=== PATIENT | female | born 1950 | race Caucasian/White ===

== ENCOUNTER 2024-07-27 06:48 | Inpatient (IN) | payer OTHER, BC, MEDICARE, SELFPAY ==
[2024-07-10 14:21] VITALS: BMI 29.3
[2024-07-10 14:45] LABS: Hematocrit 37.2 % (37.0-47.0); Hemoglobin 12.2 g/dL (12.0-16.0); Mean Corp Hgb Conc. 32.8 g/dL (33.0-37.0); Mean Corpuscular Hgb 27.2 pg (27.0-31.0); Mean Corpuscular Volume 82.9 fL (81.0-99.0); Red Blood Cell Count 4.49 10^6/uL (4.20-5.40); Red Cell Dist. Width 12.7 % (11.5-14.5); White Blood Cell Count 6.8 10^3/uL (4.8-10.8)
[2024-07-10 14:57] LABS: ALT (SGPT) 25 U/L (0-35); AST (SGOT) 24 U/L (14-36); Albumin 4.5 g/dl (3.5-5.0); Alkaline Phosphatase 83 U/L (38-126); Blood Urea Nitrogen 31 mg/dl (7-17); Calcium 9.6 mg/dl (8.4-10.2); Carbon Dioxide 28 mmol/L (22-30); Chloride 101 mmol/L (98-107); Estimated Creatinine Clearance 46 ml/min; Glucose 89 mg/dl (70-99); Potassium 3.9 mmol/L (3.5-5.1); Sodium 143 mmol/L (135-145); Total Bilirubin 0.5 mg/dl (0.2-1.3); Total Protein 7.2 g/dl (6.3-8.2); eGFR 59.86
[2024-07-10 15:03] LABS: Mean Platelet Volume 10.8 fL (7.4-10.4); Platelet Count 62 10^3/uL (130-400)
--- NOTE | 2024-07-10 15:12 | PTCARENOTE ---
Patients 07/10 platelets Cayden Bond @ Dr. Galarza office notified
[2024-07-11 08:39] LABS: Glycohemoglobin (HgbA1c) 6.8 % (4.0-5.6)
[2024-07-23 09:24] VITALS: BMI 29.3
[2024-07-27] VITALS (13 sets, daily range): BP systolic 89–134; BP diastolic 52–76; PULSE 92–94; O2SAT 95
[2024-07-27 07:38] LABS: Glucose - Point of Care 161 mg/dl (70-99)
[2024-07-27] MEDS: NORMOSOL-R/PLASMALYTE-A 1000 IV ×2 (08:00→11:30)
[2024-07-27 10:38] LABS: Glucose - Point of Care 132 mg/dl (70-99)
[2024-07-27] MEDS: ROXICODONE 5 MG PO (11:09)
[2024-07-27] MEDS: NOVOLOG FLEXPEN-MODERATE RESISTANCE SC (11:30)
--- NOTE | 2024-07-27 11:30 | PTCARENOTE ---
Received patient from PACU. Patient AAOx3, a bit drowsy. Patient Stateless speaking, understands some Icelandic, able to follow commands and give lunch order. SHOP ESTIMATOR to call patient's daughter. Call arora in reach, right aquacel with very small drainage,
ice applied, foot pumps on.
--- NOTE | 2024-07-27 11:45 | W.PN.ORTHO ---
Today's Communication / Plan
-
D/c when clinically stable.
Assessment
.
Distal Motor Intact: Yes
Dressing:
Scant incisional bleeding on center of dressing.
Assessment:
R hip OA s/p Dionne MCMULLEN w/ Dr Galarza 07/27/24
DVT prophylaxis - Eliquis 2.5 mg PO BID w/ transition to 5 mg PO BID x4 weeks (as long as platelet count remains >50,000), b/l venous foot pumps
HTN - + parameters - monitor BP
Asthma - monitor O2
- IS
- Resume inhalers
NIDDM, A1c 6.8 - monitor BS
- Resume home meds
- + SSI
GERD - add daily Protonix
Chronic constipation - add MOM HS to bowel regimen of Colace and Senna
H/o reported urinary retention - add daily Flomax
- Bladder scan/straight cath prn
ITP - improving from 62,000 to 90,000 platelets w/ Decadron pre-op
- Recheck platelets in AM
- Eliquis as stated above
- Will need weekly CBCs while on OAC
- Would benefit from prophylactic Cefadroxil
Hypercholesterolemia
H/o H pylori 2023
Fatty liver disease
Ileus post-op after bladder prolapse repair
Cholelithiasis, asymptomatic
Nephrolithiasis
Lumbar DDD
Hypothyroidism
Osteopenia
Plan
.
Surgery / Date: Dionne MCMULLEN w/ Dr Galarza 07/27/24
DVT Prophylaxis: Other (Eliquis )
Activity:
Out of bed.
PT/OT
Discharge Plan: Home w/ Outpatient PT
Subjective
.
.:
Patient examined resting in bed.
R hip pain 'moderate' - just medicated w/ Oxycodone, however, in PACU.
Denies any new significant complaints.
Vital Signs and Labs
.
Vital Signs and Labs:
Lab Results
07/10/24 14:14
07/10/24 14:14
Temp Pulse Resp BP Pulse Ox
98.1 F 62 16 134/76 95
07/27/24 07:00 07/27/24 07:00 07/27/24 07:00 07/27/24 07:00 07/27/24 07:00
Physical Exam
-
HEENT: No pallor, cyanosis, or jaundice. Throat clear.
NECK: Supple. No JVD.
RESPIRATORY: Lungs clear to auscultation.
CVS: S1, S2 normal. RRR.�
ABDOMEN: Soft, non-tender. No distension. Obese.
EXTREMITIES: Strength equal, no calf pain with palpation/dorsiflexion. Calves soft.
SOCK EXAMINER: AOx3. No focal deficits. laydown machine operator grossly intact
[2024-07-27] MEDS: TRICOR 48 MG PO (13:24)
[2024-07-27] MEDS: AMARYL 1 MG PO (13:24)
[2024-07-27] MEDS: PROTONIX 40 MG PO (13:24)
[2024-07-27] MEDS: TYLENOL 650 MG PO ×3 (13:25→20:25)
[2024-07-27] MEDS: FLOMAX 0.4 MG PO (13:25)
[2024-07-27] MEDS: NEURONTIN 200 MG PO ×3 (13:26→20:26)
[2024-07-27] MEDS: LIDOCAINE 4% PATCH 2 PATCH TOPICAL (13:26)
[2024-07-27] MEDS: VITAMIN D3 (cholecalciferol) 100 MCG PO (13:26)
[2024-07-27 17:14] LABS: Glucose - Point of Care 379 mg/dl (70-99)
[2024-07-27] MEDS: ANCEF 5 IV (17:19)
[2024-07-27] MEDS: NOVOLOG FLEXPEN-MODERATE RESISTANCE 9 UNITS SC (17:20)
[2024-07-27] MEDS: SYMBICORT 80/4.5 MCG INHALER 2 PUFF INH (20:01)
[2024-07-27] MEDS: ELIQUIS 2.5 MG PO (20:24)
[2024-07-27] MEDS: COLACE 100 MG PO (20:24)
[2024-07-27] MEDS: SENOKOT 17.2 MG PO (20:24)
[2024-07-27] MEDS: BACTROBAN 2% OINTMENT 1 APPLIC NASAL (20:25)
[2024-07-27] MEDS: SINGULAIR 10 MG PO (20:26)
[2024-07-27 21:54] LABS: Glucose - Point of Care 274 mg/dl (70-99)
[2024-07-28] VITALS (7 sets, daily range): BP systolic 98–123; BP diastolic 25–73; PULSE 83–86; O2SAT 96–98
[2024-07-28] MEDS: ANCEF 5 IV (00:40)
[2024-07-28] MEDS: TYLENOL 650 MG PO ×4 (00:40→13:09)
[2024-07-28] MEDS: SYNTHROID 137 MCG PO (06:29)
[2024-07-28 06:48] LABS: Platelet Count 102 10^3/uL (130-400)
[2024-07-28] MEDS: SYMBICORT 80/4.5 MCG INHALER 2 PUFF INH (07:18)
[2024-07-28 08:07] LABS: Glucose - Point of Care 196 mg/dl (70-99)
[2024-07-28] MEDS: NOVOLOG FLEXPEN 3 UNITS SC ×2 (09:38→13:08)
[2024-07-28] MEDS: NOVOLOG FLEXPEN-MODERATE RESISTANCE 1 UNITS SC (09:38)
[2024-07-28] MEDS: PROTONIX 40 MG PO (09:41)
[2024-07-28] MEDS: BACTROBAN 2% OINTMENT 1 APPLIC NASAL (09:42)
[2024-07-28] MEDS: NEURONTIN 200 MG PO (09:42)
[2024-07-28] MEDS: LIPITOR 10 MG PO (09:42)
[2024-07-28] MEDS: ELIQUIS 2.5 MG PO (09:43)
[2024-07-28] MEDS: SENOKOT 17.2 MG PO (09:43)
[2024-07-28] MEDS: AMARYL 1 MG PO (09:43)
[2024-07-28] MEDS: COLACE 100 MG PO (09:44)
[2024-07-28] MEDS: FLOMAX 0.4 MG PO (09:44)
[2024-07-28] MEDS: VITAMIN D3 (cholecalciferol) 100 MCG PO (09:44)
[2024-07-28] MEDS: LIDOCAINE 4% PATCH 2 PATCH TOPICAL (09:45)
[2024-07-28] MEDS: TRICOR 48 MG PO (09:45)
--- NOTE | 2024-07-28 10:02 | W.PN.ORTHO ---
Today's Communication / Plan
-
Await PT and OT recs.
D/c later today if remaining clinically stable.
Assessment
.
Distal Motor Intact: Yes
Dressing:
Scant areas of old incisional bleeding.
Assessment:
R hip OA s/p R BENEDICT w/ Dr Galarza 07/27/24
DVT prophylaxis - Eliquis 2.5 mg PO BID w/ transition to 5 mg PO BID x4 weeks (as long as platelet count remains >50,000), b/l venous foot pumps
HTN - + parameters - BPs stable
Asthma - O2 stable on RA
- IS
- Resumed inhalers
NIDDM, A1c 6.8 - BS readings initially elevated 2* surgical stress/IV steroids in OR/holding of AM Glimepiride
- Expect BS readings to improve w/ standing order Novolog 3u AC and SSI during admission, resumption of Glimepiride
GERD - added daily Protonix
Chronic constipation - added MOM HS to bowel regimen of Colace and Senna
H/o reported urinary retention - urinating by POD 1 after Flomax
ITP - improving from 62,000 to 90,000 platelets w/ Decadron pre-op
- Platelets 102,000 POD 1
- Eliquis as stated above
- Will need weekly CBCs while on OAC
- Would benefit from prophylactic Cefadroxil
Hypercholesterolemia
H/o H pylori 2023
Fatty liver disease
Ileus post-op after bladder prolapse repair
Cholelithiasis, asymptomatic
Nephrolithiasis
Lumbar DDD
Hypothyroidism
Osteopenia
Plan
.
Surgery / Date: Dionne MCMULLEN w/ Dr Galarza 07/27/24
DVT Prophylaxis: Other (Eliquis )
Activity:
Out of bed.
PT/OT
Discharge Plan: Home w/ Outpatient PT (vs home w/ VN)
Subjective
.
.:
Patient resting comfortably in her chair.
R hip pain minimal w/ current pain meds.
Denies any new significant complaints.
Vital Signs and Labs
.
Vital Signs and Labs:
Lab Results
07/28/24 04:52
07/10/24 14:14
Temp Pulse Resp BP Pulse Ox
97.4 F 80 18 98/57 96
07/28/24 07:00 07/28/24 07:22 07/28/24 07:22 07/28/24 07:00 07/28/24 07:22
Non-invasive Hgb result: 11.9
Physical Exam
-
HEENT: No pallor, cyanosis, or jaundice. Throat clear.
NECK: Supple. No JVD.
RESPIRATORY: Lungs clear to auscultation.
CVS: S1, S2 normal. RRR.�
ABDOMEN: Soft, non-tender. No distension.
EXTREMITIES: Strength equal, no calf pain with palpation/dorsiflexion. Calves soft.
CUT OFF OPERATOR SCORER: AOx3. No focal deficits. med aide grossly intact
--- NOTE | 2024-07-28 11:58 | CM ---
Met with patient and daughter. Daughter supportive
IA Completed, case management consult complete, IMM explained & signed. In chart.
Lives in a 2 story row home in [facility], 0 steps to enter as she will be entering through the basement & staying there at this time, with bath in basement.
Outpatient set up with [facility] on [address] for .
Discussed Eliquis and coupons given to daughter.
PCP: Dr. Otoniel Thornton
Pharmacy: [facility],
PLAN: Outpatient therapy
Daughter to transport home.
[2024-07-28 12:08] LABS: Glucose - Point of Care 251 mg/dl (70-99)
--- NOTE | 2024-07-28 12:28 | W.DS.TRANS ---
DC Summary - Machine Etcher
-
Discharge Instructions:
Sleep Apnea Risk Intermediate
Discharge Diagnosis/Procedures R hip OA s/p R BENEDICT w/ Dr Galarza 07/27/24
Diet Diabetic, Carb Controlled
Activity As tolerated,With Walker
Driving Restrictions Not until seen by your Dr
Bathing Restrictions OK to Shower
Blood Work CBC w/o diff on Mondays weekly x4 weeks w/
results to surgeon's office and hematology. You
were given a script for this upon d/c.
Other Services PT
Wound Care Dressing to be removed 1 week post-op.
Instructions:
Stand-Alone Forms: Total Hip/Knee Replacement D/C
Changes to Home Medications: Yes
Discharge Medications:
DC Medications w/original date entered in [facility]
calcium carbonate 500 mg PO DAILY Supplement 02/21/22
fenofibrate nanocrystallized 48 mg tablet 48 mg PO DAILY High cholesterol 02/21/22
glimepiride 1 mg tablet 1 mg PO DAILY Diabetes 02/21/22
montelukast 10 mg tablet 10 mg PO HS Allergies 02/21/22
atorvastatin 10 mg tablet 10 mg PO DAILY High Cholesterol 07/21/24
budesonide-formoterol HFA 80 mcg-4.5 mcg/actuation aerosol inhaler (Symbicort) 2 puff inhalation BID Lung/Breathing Issues 07/21/24
carbinoxamine maleate 6 mg tablet (RyVent) 6 mg PO BID 07/21/24
cholecalciferol (vitamin D3) 50 mcg (2,000 unit) capsule (Vitamin D3) 100 mcg PO DAILY Supplement 07/21/24
levothyroxine 137 mcg tablet 137 mcg PO DAILY Thyroid 07/21/24
mupirocin 2 % topical ointment 1 applic topical BID 07/21/24
Saccharomyces boulardii 250 mg capsule (Florastor) 250 mg PO BID #14 caps 07/28/24
acetaminophen 650 mg tablet,extended release 650 mg PO Q4HWA #60 tabs 07/28/24
apixaban 5 mg tablet (Eliquis) 5 mg PO BID #60 tabs 07/28/24
cefadroxil 500 mg capsule 500 mg PO BID #14 caps 07/28/24
diltiazem HCl 360 mg capsule,extended release 24 hr 360 mg PO DAILY Blood pressure #1 cap 07/28/24
docusate sodium 100 mg capsule 100 mg PO BID #30 caps 07/28/24
gabapentin 100 mg capsule 200 mg (2 x 100 mg) PO TID@0800,1400,2200 neuropathic pain #30 caps 07/28/24
hydrochlorothiazide 25 mg tablet 25 mg PO DAILY Fluid Retention/Swelling #0 tabs 07/28/24
lidocaine 4 % topical patch 2 patch topical DAILY #30 ea 07/28/24
losartan 100 mg tablet 100 mg PO DAILY Blood pressure #1 tab 07/28/24
magnesium hydroxide 400 mg/5 mL oral suspension 30 ml PO HS #3,780 mL 07/28/24
ondansetron HCl 4 mg tablet 4 mg PO Q6H PRN nausea and vomiting #30 tabs 07/28/24
oxycodone 5 mg tablet 5 - 10 mg (1 - 2 x 5 mg) PO Q6H PRN moderate-severe pain #30 tabs 07/28/24
pantoprazole 40 mg tablet,delayed release 40 mg PO DAILY #30 tabs 07/28/24
sennosides 8.6 mg tablet (Senna Laxative) 17.2 mg (2 x 8.6 mg) PO BID #30 tabs 07/28/24
Home Medication Changes
Saccharomyces boulardii 250 mg capsule (Florastor) 250 mg PO BID #14 caps 07/28/24
acetaminophen 650 mg tablet,extended release 650 mg PO Q4HWA #60 tabs 07/28/24
apixaban 5 mg tablet (Eliquis) 5 mg PO BID #60 tabs 07/28/24 2.5 mg PO BID until POD 3, then 5 mg PO BID x4 weeks
cefadroxil 500 mg capsule 500 mg PO BID #14 caps 07/28/24
docusate sodium 100 mg capsule 100 mg PO BID #30 caps 07/28/24
gabapentin 100 mg capsule 200 mg (2 x 100 mg) PO TID@0800,1400,2200 neuropathic pain #30 caps 07/28/24
lidocaine 4 % topical patch 2 patch topical DAILY #30 ea 07/28/24
magnesium hydroxide 400 mg/5 mL oral suspension 30 ml PO HS #3,780 mL 07/28/24
ondansetron HCl 4 mg tablet 4 mg PO Q6H PRN nausea and vomiting #30 tabs 07/28/24
oxycodone 5 mg tablet 5 - 10 mg (1 - 2 x 5 mg) PO Q6H PRN moderate-severe pain #30 tabs 07/28/24
pantoprazole 40 mg tablet,delayed release 40 mg PO DAILY #30 tabs 07/28/24
sennosides 8.6 mg tablet (Senna Laxative) 17.2 mg (2 x 8.6 mg) PO BID #30 tabs 07/28/24
Pending Results: No
[2024-07-28] MEDS: NOVOLOG FLEXPEN-MODERATE RESISTANCE 5 UNITS SC (13:08)
== END 2024-07-28 16:25 | disposition home or self-care (01) | DRG 470 ==
LOC: 2 SOUTH 06:48
PROVIDERS: Physician Assistant; ADMITTING PHYSICIAN Specialist; FAMILY PHYSICIAN Family Medicine; REFERRING PHYSICIAN Internal Medicine Medical Oncology
PROC: 0SR903A Replacement of Right Hip Joint with Ceramic Synthetic Substitute, Uncemented, Open Approach (ICD-10-PCS; 2024-07-27)
DX: M16.11 Unilateral primary osteoarthritis, right hip (principal); D69.3 Immune thrombocytopenic purpura; I10 Essential (primary) hypertension; K21.9 Gastro-esophageal reflux disease without esophagitis; E78.00 Pure hypercholesterolemia, unspecified; E03.9 Hypothyroidism, unspecified; E11.9 Type 2 diabetes mellitus without complications
CPT/HCPCS: 36415; 73502; 80053; 82962; 83036; 85027; 85049; 87070; 93005; 94640; 97110; 97116; 97162; 97167; 97530; 97535; C1713; C1776